=== PATIENT | female | born 1980 | race American Indian/Alaskan Native ===

== ENCOUNTER 2021-03-06 19:46 | Emergency (ER) | payer OTHER ==
[2021-03-06 20:46] VITALS: BP 138/82
[2021-03-06] MEDS ORDERED: IBUPROFEN 600 MG TAB PO ONE (21:03)
[2021-03-06] MEDS ORDERED: ACETAMINOPHEN 500 MG TAB PO ONE (21:03)
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
== END 2021-03-06 22:00 | disposition home or self-care (01) ==
LOC: ED 19:46
DX: S16.1XXA Strain of muscle, fascia and tendon at neck level, initial encounter (principal); S46.811A Strain of other muscles, fascia and tendons at shoulder and upper arm level, right arm, initial encounter; F17.200 Nicotine dependence, unspecified, uncomplicated; V89.2XXA Person injured in unspecified motor-vehicle accident, traffic, initial encounter; Y93.89 Activity, other specified; Y92.89 Other specified places as the place of occurrence of the external cause; Y99.8 Other external cause status
CPT/HCPCS: 99282